=== PATIENT | male | born 1970 | race Caucasian/White ===

== ENCOUNTER 2016-09-11 07:19 | Emergency (ER) | payer MEDICAID ==
[~2016-09-11] VITALS: Ht 165.1 cm; Wt 98.9 kg
[2016-09-11 09:55] VITALS: BP 125/86
== END 2016-09-11 09:55 | disposition home or self-care (01) ==
LOC: ED 07:19
DX: R10.9 Unspecified abdominal pain (principal); R11.2 Nausea with vomiting, unspecified; R19.7 Diarrhea, unspecified
CPT/HCPCS: J1885; Q0162

== ENCOUNTER 2017-02-13 06:32 | Emergency (ER) | payer MEDICAID ==
[2017-02-13 07:25] VITALS: BP 149/96
== END 2017-02-13 07:25 | disposition home or self-care (01) ==
LOC: ED 06:32
DX: G44.209 Tension-type headache, unspecified, not intractable (principal); E78.00 Pure hypercholesterolemia, unspecified; I10 Essential (primary) hypertension

== ENCOUNTER 2018-03-21 10:02 | Emergency (ER) | payer SELFPAY ==
[~2018-03-21] VITALS: Ht 167.6 cm; Wt 103.4 kg
[2018-03-21 10:14] VITALS: BP 159/100
== END 2018-03-21 10:49 | disposition home or self-care (01) ==
LOC: ED 10:02
DX: K64.4 Residual hemorrhoidal skin tags (principal); I10 Essential (primary) hypertension; F41.9 Anxiety disorder, unspecified; E78.00 Pure hypercholesterolemia, unspecified

== ENCOUNTER 2018-04-02 10:25 | Emergency (ER) | payer BC ==
[~2018-04-02] VITALS: Ht 165.1 cm; Wt 102.5 kg
[2018-04-02 10:36] VITALS: Ht 165.1 cm; Wt 102.5 kg
[2018-04-02 11:37] VITALS: BP 118/79
== END 2018-04-02 11:40 | disposition home or self-care (01) ==
LOC: ED 10:25
DX: K64.8 Other hemorrhoids (principal); I10 Essential (primary) hypertension; F41.9 Anxiety disorder, unspecified; E78.00 Pure hypercholesterolemia, unspecified

== ENCOUNTER 2020-03-02 07:46 | Emergency (ER) | payer MEDICAID ==
[~2020-03-02] VITALS: Ht 167.6 cm; Wt 111.6 kg
[2020-03-02 07:54] VITALS: BP 144/91; Ht 167.6 cm; Wt 111.6 kg
== END 2020-03-02 09:30 | disposition home or self-care (01) ==
LOC: ED 07:46
DX: H61.22 Impacted cerumen, left ear (principal); I10 Essential (primary) hypertension; E78.00 Pure hypercholesterolemia, unspecified